=== PATIENT | female | born 1975 | race Caucasian/White ===

== ENCOUNTER → 2017-02-05 | Outpatient (CLI) | payer BC ==
[~2017-02-05] MED LIST: LISINOPRIL20 MG PO; MIRALAX17 GM PO; NORCO 10-325 T1 EACH PO; NORCO 7.5-3251 EACH PO; RIZATRIPTAN10 MG PO; TRAMADOL HCL50 MG PO
[2017-02-05 09:57] LABS: HEMOGLOBIN 14.2 gm/dl (12.3-15.3); RED BLOOD COUNT 4.81 M/UL (4.00-5.10); WHITE BLOOD COUNT 4.7 K/UL (4.5-11.0)
[2017-02-05 10:19] LABS: BUN/CREATININE RATIO 14 (0-10)
== END ==
LOC: OPSV2 09:15
PROVIDERS: Obstetrics & Gynecology
DX: Z01.812 Encounter for preprocedural laboratory examination (principal); N80.6 Endometriosis in cutaneous scar; Z88.0 Allergy status to penicillin
CPT/HCPCS: 36415; 80048; 81001; 85025

== ENCOUNTER → 2017-02-12 | Day surgery (SDC) | payer BC ==
[~2017-02-12] VITALS: Ht 160 cm; Wt 79.4 kg
== END | disposition home or self-care (01) ==
LOC: OR 07:30
PROVIDERS: Obstetrics & Gynecology
PROC: 0JB80ZZ Excision of Abdomen Subcutaneous Tissue and Fascia, Open Approach (ICD-10-PCS; principal; 2017-02-12 11:45)
DX: N80.6 Endometriosis in cutaneous scar (principal); I10 Essential (primary) hypertension; G43.909 Migraine, unspecified, not intractable, without status migrainosus; Z88.0 Allergy status to penicillin; Z79.899 Other long term (current) drug therapy; Z90.49 Acquired absence of other specified parts of digestive tract; Z98.890 Other specified postprocedural states
CPT/HCPCS: 36415; 84703; J1100; J1885; J2250; J2270; J2405; J2710; J2795; J3010; J7120

== ENCOUNTER → 2021-04-12 | Outpatient (CLI) | payer BC, OTHER | LOC: KOH-I 04-11 16:00 | DX: M54.12 Radiculopathy, cervical region (principal); G89.29 Other chronic pain | CPT/HCPCS: 72141 ==

== ENCOUNTER → 2021-06-21 | Outpatient (CLI) | payer BC, OTHER | LOC: SLEEP-COR 06-20 15:30 | DX: Z53.9 Procedure and treatment not carried out, unspecified reason (principal) | CPT/HCPCS: 95810 ==

== ENCOUNTER → 2021-08-22 | Outpatient (CLI) | payer BC | LOC: KOH-I 15:57 | DX: M51.17 Intervertebral disc disorders with radiculopathy, lumbosacral region (principal) | CPT/HCPCS: 72148 ==

== ENCOUNTER → 2022-06-25 | Outpatient (CLI) | payer BC | LOC: CT 12:43 | DX: I65.29 Occlusion and stenosis of unspecified carotid artery (principal); M47.812 Spondylosis without myelopathy or radiculopathy, cervical region; M48.02 Spinal stenosis, cervical region; M25.70 Osteophyte, unspecified joint | CPT/HCPCS: 70498; Q9967 ==